=== PATIENT | male | born 1955 | race Caucasian/White ===

== ENCOUNTER 2023-06-22 06:12 | Day surgery (SDC) | payer MEDICARE, BC ==
[~2023-06-22] VITALS: Ht 180.3 cm; Wt 88.5 kg
[~2023-06-22 06:12] MED LIST: APPLTAB2 OR; ATOR20TA PO; CHOL20004 PO; COEN100C15 PO; CYAN1TAB14 PO; KRIL1CAP11 PO; LACTCAP35 OR; LORA-622 PO; MAGN241.4 PO; PROP60CA37 PO; TELM1TAB PO; [UNRECOGNIZED DRUG - CODE] PO
[2023-06-22] MEDS ORDERED: ceFAZolin 2 GM/D5W50ml 50 ML IV ONE (06:31)
[2023-06-22] MEDS ORDERED: LIDOCAINE 1% HCL (LOCAL ANESTH.) INJ 20ML MDV ONE (06:51)
[2023-06-22] MEDS ORDERED: BUPIVACAINE HCL 0.25% P/F 10 ML VIAL ONE (06:51)
[2023-06-22] MEDS ORDERED: PROPOFOL 10 MG/ML 20 ML IV ONE (06:58)
[2023-06-22] MEDS ORDERED: fentaNYL CITRATE 100 MCG/2 ML VL ONE (06:58)
[2023-06-22] MEDS ORDERED: GLYCOPYRROLATE 0.2 MG/ML 1ML VIAL ONE (07:21)
[2023-06-22] MEDS ORDERED: MEPERIDINE HCL (25 MG/ML) 1ML VIAL ONE (07:40)
[2023-06-22 07:45] VITALS: RESP 12; TEMP 97.2; O2SAT 97
[2023-06-22] MEDS ORDERED: MEPERIDINE HCL (25 MG/ML) 1ML VIAL IV PRN (08:00)
[2023-06-22] MEDS ORDERED: ONDANSETRON HCL 4 MG/2 ML VIAL IV ONE (08:00)
[2023-06-22] MEDS ORDERED: HYDROmorphone HCL 2 MG/ML VL/or syr IV PRN (08:00)
[2023-06-22 08:40] VITALS: BP 103/52; PULSE 63; RESP 18; O2SAT 96
== END 2023-06-22 09:00 | disposition home or self-care (01) ==
LOC: SUR 06:12
PROVIDERS: ATTEND Orthopaedic Surgery Adult Reconstructive Orthopaedic Surgery
DX: M72.0 Palmar fascial fibromatosis [Dupuytren] (principal); I10 Essential (primary) hypertension; I48.91 Unspecified atrial fibrillation; E78.5 Hyperlipidemia, unspecified; Z88.8 Allergy status to other drugs, medicaments and biological substances; Z79.899 Other long term (current) drug therapy; Z98.890 Other specified postprocedural states
CPT/HCPCS: 26123; 26125; 88305; J0690; J2001; J2175; J2704; J3010; J3490